=== PATIENT | female | born 1940 | race Caucasian/White ===

== ENCOUNTER → 2024-11-16 | Outpatient (CLI) | payer MEDICARE, SELFPAY ==
--- NOTE | 2024-11-16 11:27 | NEURO ---
NCS and/or EMG Patient Report Ordering Doctor: Clive Bullard DATE OF SERVICE: 11/16/24 Anne Marie presents for electrodiagnostic testing of the right upper limb. She reports pain around the right wrist described as sharp. She reports weakness in the right hand. Electrodiagnostic findings: Right median motor nerve demonstrates normal distal latency and amplitude with reduced conduction velocity. Right ulnar motor response is within normal limits, including conduction across the elbow. Normal median F?wave. Borderline prolonged right ulnar F?wave. Prolonged right median sensory latency at the wrist. Needle EMG testing was performed the right upper limb. All muscles tested showed no evidence of denervation with normal motor unit action potentials. Electrodiagnostic impression: This is an abnormal study in the right upper limb. 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 2 No electrodiagnostic evidence is noted for ulnar neuropathy, including cubital tunnel syndrome 3. No electrodiagnostic evidence is noted for cervical radiculopathy Multi Select Codes Neurology Neurology Interp Codes: 07782-69 Musc test done w/n test comp (interp) and 36521-54 Nrv cndj test 7-8 studies (interp)
== END | disposition home or self-care (01) ==
LOC: PSN 10:07
PROVIDERS: PCP Family Medicine; Referring Provider Orthopaedic Surgery; Visit Provider Orthopaedic Surgery
DX: R20.2 Paresthesia of skin (principal); M19.031 Primary osteoarthritis, right wrist; M85.431 Solitary bone cyst, right ulna and radius
CPT/HCPCS: 95886; 95910